=== PATIENT | male | born 1965 | race Caucasian/White ===

== ENCOUNTER 2017-01-29 16:27 | Emergency (ER) | payer MEDICAID, SELFPAY | END 2017-01-29 17:04 | disposition left against medical advice (07) | LOC: ED 16:58 | DX: Z53.21 Procedure and treatment not carried out due to patient leaving prior to being seen by health care provider (principal) ==

== ENCOUNTER 2017-02-10 13:47 | Emergency (ER) | payer SELFPAY ==
[~2017-02-10] VITALS: Ht 180.3 cm; Wt 80.0 kg
[2017-02-10 17:19] VITALS: BP 137/78
== END 2017-02-10 17:21 | disposition home or self-care (01) ==
LOC: ED 16:10
DX: F15.10 Other stimulant abuse, uncomplicated (principal)
CPT/HCPCS: 99281

== ENCOUNTER 2019-02-11 14:10 | Inpatient (IN) | payer OTHER ==
[~2019-02-11] VITALS: Ht 180.3 cm; Wt 76.9 kg
[2019-02-11] MEDS ORDERED: LORazepam 2 MG/ML, 1ML ONE (14:27)
[2019-02-11] MEDS ORDERED: THIAMINE 100MG TABLET PO ONE ×2 (14:30→21:00)
[2019-02-11] MEDS ORDERED: SODIUM CHLORIDE FLUSH 10ML SYR IVF ONE (14:30)
[2019-02-11] MEDS: LORazepam 2 MG/ML, 1ML IVPush PRN ×2 (14:41→15:57)
--- NOTE | 2019-02-11 14:50 | NUR ---
LATE NOTE ENTRY FOR 1415 DUE TO PT CARE. 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 Pt quit drinking "3 to 4 days ago". Pt reports drinking 1/2 to 1 pint a day or more. Pt states he was sick with flu like symptoms and quit drinking during this time. Pt denies past history of seizure or withdrawal symptoms. Pt connected to NIBP cuff, continous pulse ox monitor, and manager monitoring. Seizure precautions in place. Bedrails up x 2 and call light within reach. PIV established and medicaiton provided per [facility]. NADN. No other needs expressed at this time.
[2019-02-11 15:08] LABS: ALANINE AMINOTRANSFERASE 157 U/L (12-78); ALBUMIN 3.9 g/dL (3.4-5.0); ANION GAP 7 mmol/L (5-15); CALCIUM 8.8 mg/dL (8.5-10.1); CHLORIDE 100 mmol/L (98-107)
[2019-02-11 15:10] LABS: ALKALINE PHOSPHATASE 77 U/L (45-117); BILIRUBIN,TOTAL 0.9 mg/dL (0.2-1.0); TOTAL PROTEIN 7.5 g/dL (6.4-8.2)
--- NOTE | 2019-02-11 15:25 | NUR ---
Pt transported on gurney to CT at this time. NADN. No needs expressed.
[2019-02-11 15:39] LABS: MEAN CORPUSCULAR HGB CONC 33.8 g/dL (33.2-36.2); MEAN CORPUSCULAR VOLUME 103.6 fL (81-97); RED BLOOD COUNT 4.28 x10^6/uL (4.38-5.82); RED CELL DISTRIBUTION WIDTH 14.2 % (9.4-14.8)
[2019-02-11 15:41] LABS: MEAN PLATELET VOLUME 8.1 fL (7.4-10.4); PLATELET COUNT 82 x10^3/uL (130-400)
[2019-02-11 15:43] LABS: MD YES
[2019-02-11 15:49] LABS: BAND#(MANUAL) 0.32 x10^3/uL; BANDS%(MANUAL) 7 % (0-7); LYMPHS% (MANUAL) 11 % (22-44); MONOS#(MANUAL) 0.36 x10^3/uL (0.3-2.7); MONOS% (MANUAL) 8 % (2-9); SEG#(MANUAL) 3.33 x10^3/uL (1.8-6.8); SEGS% (MANUAL) 74 % (42-75)
[2019-02-11 15:51] LABS: <PLATELET ESTIMATE> DECREASED; <PLT MORPHOLOGY> NORMAL PLT MORPH; POLYCHROMASIA 1+
[2019-02-11] MEDS ORDERED: THIAMINE 100MG TABLET ONE (16:00)
[2019-02-11] MEDS ORDERED: hydrALAzine 20 MG/ML, 1ML IVPush PRN (16:30)
[2019-02-11] MEDS ORDERED: LORazepam 1MG TABLET PO PRN ×2 (16:30)
[2019-02-11] MEDS ORDERED: LORazepam 0.5MG TABLET PO PRN (16:30)
[2019-02-11] MEDS ORDERED: LABETALOL 5MG/ML, 20ML IVPush PRN (16:30)
[2019-02-11] MEDS ORDERED: PROMETHAZINE 25 MG/ML, 1ML IM PRN (16:30)
[2019-02-11] MEDS ORDERED: ONDANSETRON 2MG/ML, 2ML IVPush PRN (16:30)
[2019-02-11] MEDS ORDERED: LORazepam 2 MG/ML, 1ML IV PRN ×3 (16:30)
[2019-02-11] MEDS ORDERED: GADOTERATE 10 MMOL/20 ML SYR ONE (16:48)
[2019-02-11 17:05] LABS: HEMOGLOBIN A1C 5.5 % (4.2-6.3)
--- NOTE | 2019-02-11 17:21 | NUR ---
Provided report to MARIAN Worthy. All questions answered. Pt ready to transfer to floor from ED. NADN. No needs expressed. Pt left with all personal belongings.
--- NOTE | 2019-02-11 17:24 | NUR ---
Pt transported on gurney to imaging. Pt not in ED room at this time.
[2019-02-11 17:49] VITALS: BP 135/93
--- NOTE | 2019-02-11 18:03 | NUR ---
Pt transfered from ED to floor and left with all personal belongings. NADN. No needs expressed.
[2019-02-11] MEDS: NICOTINE 7 MG/24 HR PATCH.TD24 TD SCH (18:16)
[2019-02-11] MEDS: HEPARIN 5,000 UNITS/ML, 1ML SQ SCH (18:17)
[2019-02-11] MEDS: SODIUM CHLORIDE 0.9% 1,000 ML IV SCH (18:20)
[2019-02-11 19:23] VITALS: BP 134/73
[2019-02-11] MEDS: ACETAMINOPHEN 325 MG TABLET PO PRN (20:46)
[2019-02-11] MEDS: THIAMINE 100MG TABLET PO SCH (20:46)
[2019-02-12] VITALS (11 sets, daily range): BP systolic 131–155; BP diastolic 86–110
[2019-02-12] MEDS: HEPARIN 5,000 UNITS/ML, 1ML SQ SCH ×3 (02:04→17:50)
[2019-02-12 05:41] LABS: ALBUMIN 3.4 g/dL (3.4-5.0); ANION GAP 8 mmol/L (5-15); CALCIUM 7.8 mg/dL (8.5-10.1); CHLORIDE 102 mmol/L (98-107)
[2019-02-12 05:53] LABS: ALANINE AMINOTRANSFERASE 129 U/L (12-78); ALKALINE PHOSPHATASE 69 U/L (45-117); CREATININE 0.64 mg/dL (0.7-1.3); TOTAL PROTEIN 6.6 g/dL (6.4-8.2)
[2019-02-12] MEDS: SODIUM CHLORIDE 0.9% 1,000 ML IV SCH ×2 (06:13→17:50)
[2019-02-12 06:23] LABS: MEAN CORPUSCULAR HEMOGLOBIN 34.9 pg (27.5-34.5); MEAN CORPUSCULAR HGB CONC 33.4 g/dL (33.2-36.2); MEAN CORPUSCULAR VOLUME 104.6 fL (81-97); MEAN PLATELET VOLUME 7.4 fL (7.4-10.4); PLATELET COUNT 66 x10^3/uL (130-400); RED BLOOD COUNT 4.04 x10^6/uL (4.38-5.82); RED CELL DISTRIBUTION WIDTH 14.1 % (9.4-14.8)
[2019-02-12 06:28] LABS: BASOPHILS # (AUTO) 0.02 x10^3/uL (0-0.1); BASOPHILS % (AUTO) 0 % (0-1); EOSINOPHILS # (AUTO) 0.13 x10^3/uL (0-0.4); EOSINOPHILS % (AUTO) 3 % (1-7); LYMPHOCYTES # (AUTO) 0.96 x10^3/uL (1-3.4); LYMPHOCYTES % (AUTO) 20 % (22-44); MD SCAN; MONOCYTES % (AUTO) 13 % (2-9); NEUTROPHILS # (AUTO) 3.11 x10^3/uL (1.8-6.8); NEUTROPHILS % (AUTO) 64 % (42-75)
[2019-02-12] MEDS: FOLIC ACID 1 MG TABLET PO SCH (08:44)
[2019-02-12] MEDS: THIAMINE 100MG TABLET PO SCH ×2 (08:44→22:02)
[2019-02-12] MEDS: MULTIVITAMIN 1 TABLET PO SCH (08:44)
[2019-02-12] MEDS: ACETAMINOPHEN 325 MG TABLET PO PRN (08:46)
[2019-02-12] MEDS ORDERED: CHLORDIAZEPOXIDE 25 MG CAPSULE PO SCH (16:00)
[2019-02-12] MEDS: NICOTINE 7 MG/24 HR PATCH.TD24 TD SCH (17:50)
[2019-02-12] MEDS: CHLORDIAZEPOXIDE 25 MG CAPSULE PO SCH (21:00)
[2019-02-13 00:52] VITALS: BP 135/88
[2019-02-13] MEDS: HEPARIN 5,000 UNITS/ML, 1ML SQ SCH ×2 (04:43→12:45)
[2019-02-13 06:56] LABS: ALBUMIN 3.4 g/dL (3.4-5.0); ANION GAP 9 mmol/L (5-15); CALCIUM 8.4 mg/dL (8.5-10.1); CHLORIDE 106 mmol/L (98-107)
[2019-02-13 07:01] LABS: ALANINE AMINOTRANSFERASE 115 U/L (12-78); ALKALINE PHOSPHATASE 73 U/L (45-117); BILIRUBIN,TOTAL 0.9 mg/dL (0.2-1.0); CREATININE 0.67 mg/dL (0.7-1.3); TOTAL PROTEIN 7.1 g/dL (6.4-8.2)
[2019-02-13 08:09] VITALS: BP_SYST 137; BP_SYST 141; BP_DIAS 100; BP_DIAS 97
[2019-02-13] MEDS: SODIUM CHLORIDE 0.9% 1,000 ML IV SCH (08:27)
[2019-02-13] MEDS: FOLIC ACID 1 MG TABLET PO SCH (08:28)
[2019-02-13] MEDS: MULTIVITAMIN 1 TABLET PO SCH (08:28)
[2019-02-13] MEDS: THIAMINE 100MG TABLET PO SCH (08:28)
[2019-02-13] MEDS: CHLORDIAZEPOXIDE 25 MG CAPSULE PO SCH (08:52)
[2019-02-13] MEDS ORDERED: OMNIPAQUE 350 MG/ML, 100ML BOTTLE ONE (10:10)
[2019-02-13] MEDS ORDERED: MULT1TAB60 PO (11:48)
[2019-02-13] MEDS ORDERED: THIA100T67 PO (11:48)
[2019-02-13] MEDS ORDERED: MAGN400T26 PO (11:48)
[2019-02-13] MEDS ORDERED: FOLI-17 PO (11:48)
[2019-02-13] MEDS ORDERED: CHLO25CA9 PO (11:48)
[2019-02-13] MEDS ORDERED: NICO-485 TD (11:48)
[2019-02-13] MEDS ORDERED: TRAM50TA2 PO (11:49)
[2019-02-13] MEDS ORDERED: BACL-19 PO (12:06)
[2019-02-13 13:08] LABS: MICROSCOPIC NOT IND
[2019-02-13 13:14] LABS: CULTURE INDICATED? NO
[2019-02-13 13:19] LABS: AMPHETAMINE SCREEN, URINE Negative (Negative); BARBITURATE SCREEN, URINE Negative (Negative); BENZODIAZEPINE SCREEN, URINE Negative (Negative); CANNABINOID SCREEN, URINE Negative (Negative); COCAINE SCREEN, URINE Negative (Negative); METHADONE SCREEN, URINE Negative (Negative); OPIATE SCREEN, URINE Negative (Negative)
[2019-02-13] MEDS ORDERED: FLU VACC QS2019-20 36MOS UP/PF 0.5 ML IM-VACC ONE (14:30)
== END 2019-02-13 15:30 | disposition home or self-care (01) | DRG 101 ==
LOC: ED 16:12 → EDIP 16:13 → ED 16:32 → 4WST 17:37 → DCLOUNGE 02-13 15:24
PROVIDERS: ADMIT Internal Medicine; ATTEND Internal Medicine
DX: R56.9 Unspecified convulsions (principal); E87.1 Hypo-osmolality and hyponatremia; E87.2 Acidosis; D69.59 Other secondary thrombocytopenia; E86.1 Hypovolemia; R73.9 Hyperglycemia, unspecified; F10.10 Alcohol abuse, uncomplicated; Z87.891 Personal history of nicotine dependence
CPT/HCPCS: 36415; 70450; 70496; 70553; 71045; 76705; 80053; 80307; 81003; 83036; 83605; 83690; 83735; 84100; 84443; 85025; 90686; 93005; 93306; 93880; 95819; 96374; G0378; J1644; Q9967; A9575; J2060; J7030